=== PATIENT | male | born 1995 | race Caucasian/White ===

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

== ENCOUNTER 2019-01-28 08:17 | Emergency (ER) | payer BC, OTHER ==
[~2019-01-28] VITALS: Ht 185.4 cm; Wt 79.8 kg
[~2019-01-28 08:17] MED LIST: CEFD300C3 PO; PENICILLIN; PRD10T PO
--- OUTSIDE RECORDS SUMMARY | 2019-01-28 08:24 | XMS REPORT | Continuity of Care Document ---
Author Author [facility] Organization [facility] Address Unknown Phone Unavailable Allergies Active Description Code Type Severity Reaction Onset Reported/Identified Relationship to Patient Clinical Status Yes diphenhydramine [id number] Drug Allergy Mild RASH 03/07/2016 Medications There is no data. Problems Date Dx Coded Attending Type Code Diagnosis Diagnosed By 03/07/2016 KELLY PRESCOTT, DEDE Wise Ot F17.210 NICOTINE DEPENDENCE, CIGARETTES, UNCOMPL 03/07/2016 KELLY PRESCOTT, DEDE Wise Ot G51.0 HERNANDES'S PALSY 03/10/2016 KELLY PRESCOTT, DEDE Wise Ot F17.210 NICOTINE DEPENDENCE, CIGARETTES, UNCOMPL 03/10/2016 KELLY PRESCOTT, DEDE Wise Ot G51.0 HERNANDES'S PALSY 03/10/2016 KELLY PRESCOTT, DEDE Wise Ot F17.210 NICOTINE DEPENDENCE, CIGARETTES, UNCOMPL 03/10/2016 KELLY PRESCOTT, DEDE Wise Ot G51.0 HERNANDES'S PALSY 03/12/2016 KELLY PRESCOTT, DEDE Wise Ot F17.210 NICOTINE DEPENDENCE, CIGARETTES, UNCOMPL 03/12/2016 KELLY PRESCOTT, DEDE Wise Ot G51.0 HERNANDES'S PALSY 12/15/2016 MARKUS OLMEDO DO Ot F17.210 NICOTINE DEPENDENCE, CIGARETTES, UNCOMPL 12/15/2016 MARKUS OLMEDO DO Ot J02.9 ACUTE PHARYNGITIS, UNSPECIFIED 12/15/2016 MARKUS OLMEDO DO Ot K12.2 CELLULITIS AND ABSCESS OF MOUTH 12/15/2016 MARKUS OLMEDO DO Ot L30.9 DERMATITIS, UNSPECIFIED 12/17/2016 MARKUS OLMEDO DO Ot F17.210 NICOTINE DEPENDENCE, CIGARETTES, UNCOMPL 12/17/2016 MARKUS OLMEDO DO Ot J02.9 ACUTE PHARYNGITIS, UNSPECIFIED 12/17/2016 MARKUS OLMEDO DO Ot K12.2 CELLULITIS AND ABSCESS OF MOUTH 12/17/2016 MARKUS OLMEDO DO Ot L30.9 DERMATITIS, UNSPECIFIED 12/19/2016 MARKUS OLMEDO DO Ot F17.210 NICOTINE DEPENDENCE, CIGARETTES, UNCOMPL 12/19/2016 MARKUS OLMEDO DO Ot J02.9 ACUTE PHARYNGITIS, UNSPECIFIED 12/19/2016 MARKUS OLMEDO DO Ot K12.2 CELLULITIS AND ABSCESS OF MOUTH 12/19/2016 MARKUS OLMEDO DO Ot L30.9 DERMATITIS, UNSPECIFIED Procedures There is no data. Results Test Result Range Complete blood count (CBC) with automated white blood cell (WBC) differential - 12/15/16 07:23 Blood leukocytes automated count (number/volume) 9.6 10*3/uL 4.3-11.0 Blood erythrocytes automated count (number/volume) 5.35 10*6/uL 4.35-5.85 Venous blood hemoglobin measurement (mass/volume) 14.4 g/dL 13.3-17.7 Blood hematocrit (volume fraction) 43 % 40-54 Automated erythrocyte mean corpuscular volume 81 [foz_us] 80-99 Automated erythrocyte mean corpuscular hemoglobin (mass per erythrocyte) 27 pg 25-34 Automated erythrocyte mean corpuscular hemoglobin concentration measurement ( mass/volume) 33 g/dL 32-36 Automated erythrocyte distribution width ratio 13.7 % 10.0-14.5 Automated blood platelet count (count/volume) 343 10*3/uL 130-400 Automated blood platelet mean volume measurement 9.5 [foz_us] 7.4-10.4 Automated blood neutrophils/100 leukocytes 54 % 42-75 Automated blood lymphocytes/100 leukocytes 33 % 12-44 Blood monocytes/100 leukocytes 10 % 0-12 Automated blood eosinophils/100 leukocytes 3 % 0-10 Automated blood basophils/100 leukocytes 1 % 0-10 Blood neutrophils automated count (number/volume) 5.2 10*3 1.8-7.8 Blood lymphocytes automated count (number/volume) 3.1 10*3 1.0-4.0 Blood monocytes automated count (number/volume) 1.0 10*3 0.0-1.0 Automated eosinophil count 0.3 10*3/uL 0.0-0.3 Automated blood basophil count (count/volume) 0.1 10*3/uL 0.0-0.1 Streptococcus pyogenes antigen detection - 12/15/16 07:23 Streptococcus pyogenes antigen detection NEGATIVE NEGATIVE Serum heterophile antibody titer - 12/15/16 07:23 Serum heterophile antibody titer NEGATIVE NEGATIVE Comprehensive metabolic panel - 12/15/16 07:23 Serum or plasma sodium measurement (moles/volume) 140 mmol/L 135-145 Serum or plasma potassium measurement (moles/volume) 4.1 mmol/L 3.6-5.0 Serum or plasma chloride measurement (moles/volume) 104 mmol/L 98-107 Carbon dioxide 25 mmol/L 21-32 Serum or plasma anion gap determination (moles/volume) 11 mmol/L 5-14 Serum or plasma urea nitrogen measurement (mass/volume) 16 mg/dL 7-18 Serum or plasma creatinine measurement (mass/volume) 0.88 mg/dL 0.60-1.30 Serum or plasma urea nitrogen/creatinine mass ratio 18 NRG Serum or plasma creatinine measurement with calculation of estimated glomerular filtration rate > NRG Serum or plasma glucose measurement (mass/volume) 99 mg/dL 70-105 Serum or plasma calcium measurement (mass/volume) 9.3 mg/dL 8.5-10.1 Serum or plasma total bilirubin measurement (mass/volume) 0.2 mg/dL 0.1-1.0 Serum or plasma alkaline phosphatase measurement (enzymatic activity/volume) 73 U/L 40-136 Serum or plasma aspartate aminotransferase measurement (enzymatic activity/ volume) 35 U/L 5-34 Serum or plasma alanine aminotransferase measurement (enzymatic activity/volume ) 33 U/L 0-55 Serum or plasma protein measurement (mass/volume) 7.6 g/dL 6.4-8.2 Serum or plasma albumin measurement (mass/volume) 4.6 g/dL 3.2-4.5 Bacterial throat culture - 12/15/16 07:23 Bacterial throat culture NBS NRG Encounters ACCT No. Visit Date/Time Discharge Status Pt. Type Provider Facility Loc./Unit Complaint [id number] 12/15/2016 07:02:00 12/15/2016 09:02:00 DIS Emergency MARKUS OLMEDO DO [facility] ER SORE THROAT [id number] 03/07/2016 11:34:00 03/07/2016 13:36:00 DIS Emergency KELLY PRESCOTT, DEDE Wise [facility] ER LEFT SIDE FACIAL WEAKNESS [id number] 01/28/2019 08:20:00 ACT Emergency BLAKE PRESCOTT, VINI [facility] ER LEFT FOOT/ANKLE INJURY
[2019-01-28] MEDS ORDERED: TETANUS,DIPTH,PERTUSS P/F (BOOSTRIX) 0.5 ML VIAL IM ONE (08:45)
--- NOTE | 2019-01-28 09:07 | Diagnostic Imaging Report ---
INDICATION: Left foot injury and abrasion. Time of exam: 8:47 AM 3 views of the left foot were obtained. There appears to be dorsal soft tissue swelling of the foot. Metatarsals and phalanges are intact. The midfoot and hindfoot are unremarkable. No fractures are seen. IMPRESSION: Dorsal soft tissue swelling. No acute bony abnormality is detected. Dictated by: Dictated on workstation # [id number]
--- NOTE | 2019-01-28 09:08 | Diagnostic Imaging Report ---
INDICATION: Injury and pain to the left lower extremity. TIME OF EXAM: 08:45 a.m. Frontal and lateral views of the left tibia and fibula were obtained. Alignment at the knee and ankle is normal. Tibia and fibula appear intact. No fractures are seen. IMPRESSION: No acute bony abnormality is detected. Dictated by: Dictated on workstation # [id number]
[2019-01-28] MEDS ORDERED: ACETAMINOPHEN 500 MG TAB (TYLENOL) PO ONE (10:00)
[2019-01-28] MEDS ORDERED: IBUPROFEN TABLET 200 MG TAB PO ONE (10:00)
[2019-01-28] MEDS ORDERED: CEPH-507 PO (10:04)
--- NOTE | 2019-01-28 10:08 | ED General ---
General Chief Complaint: Lower Extremity Stated Complaint: LEFT FOOT/ANKLE INJURY Nursing Triage Note: PT PRESENTS TO ED WITH COMPLAINTS OF L FOOT PAIN AFTER INJURING THURSDAY WITH A PALET KAYLA. PT REPORTS L LOWER LEG PAIN, ANKLE AND FOOT PAIN. Nursing Sepsis Screen: No Definite Risk Source of Information: Patient Exam Limitations: No Limitations Allergies and Home Medications Allergies Coded Allergies: diphenhydramine (Unverified Allergy, Mild, RASH, 03/07/16) Home Medications Cephalexin 500 Mg Capsule, 500 MG PO QID Prescribed by: VINI DORMAN on 01/28/19 1004 Past Unxitlo-Szoxau-Ecxrpk Hx Patient Social History Alcohol Use: Occasionally Uses Alcohol Beverage of Choice: Beer Recreational Drug Use: Yes (MARIJUANA) Smoking Status: Current Everyday Smoker Type Used: Cigarettes Recent Foreign Travel: No Contact w/Someone Who Travel: No Recent Infectious Disease Expo: No Recent Hopitalizations: No Physical Abuse: No Sexual Abuse: No Mistreated: No Fear: No Immunizations Up To Date Tetanus Booster (TDap): More than 5yrs PED Vaccines UTD: Yes Seasonal Allergies Seasonal Allergies: No Past Medical History Surgeries: Yes ("LOWER ABDOMINAL SX ") Testicular Respiratory: Yes Asthma Currently Using CPAP: No Currently Using BIPAP: No Cardiac: No Neurological: Yes Concussion, Headaches /Migraines Reproductive Disorders: No Genitourinary: No Gastrointestinal: No Musculoskeletal: No Endocrine: No HEENT: No Cancer: No Psychosocial: Yes Anxiety Integumentary: Yes Eczema Blood Disorders: No Physical Exam Vital Signs Vital Signs - First Documented 01/28/19 08:34 Temp 96.8 Pulse 89 Resp 20 B/P (MAP) 140/89 (106) Pulse Ox 100 Capillary Refill : Less Than 3 Seconds Height, Weight, BMI Height: 6'1.00" Weight: 176lbs. oz. 79.735490sd; 22.69 BMI Method:Stated Progress/Results/Core Measures Suspected Sepsis Recent Fever Within 48 Hours: No Infection Criteria Present: None New/Unexplained Altered Menta: No Sepsis Screen: No Definite Risk SIRS Temperature:96.8 Pulse: 89 Respiratory Rate: 20 Blood Pressure 140 /89 Mean: 106 Results/Orders My Orders Orders - VINI LOZANO MD Foot, Left, 3 Views (01/28/19 08:33) Tibia/Fibula, Left, 2 Views (01/28/19 08:36) Dipht,Pertuss(Acell),Tet Adult (Boostrix (01/28/19 08:45) Ibuprofen Tablet (Motrin Tablet) (01/28/19 10:00) Acetaminophen Tablet (Tylenol Tablet) (01/28/19 10:00) Medications Given in ED Current Medications Medications Dose Ordered Sig/Olivier Route Start Time Stop Time Status Last Admin Dose Admin Diphtheria/ Tetanus/Acell Pertussis 0.5 ml ONCE ONCE IM 01/28/19 08:45 01/28/19 08:46 DC 01/28/19 09:43 0.5 ML Vital Signs/I&O 01/28/19 08:34 Temp 96.8 Pulse 89 Resp 20 B/P (MAP) 140/89 (106) Pulse Ox 100 Capillary Refill : Less Than 3 Seconds Blood Pressure Mean: 106 Departure Impression Primary Impression: Crush injury of left foot Qualified Codes: S97.82XA - Crushing injury of left foot, initial encounter Additional Impressions: Abrasion, left ankle, initial encounter Cellulitis of left foot Disposition: 01 HOME, SELF-CARE Condition: Against Medical Advice Departure-Patient Inst. Decision time for Depature: 09:45 Referrals: JOAN BARAHONA MD (PCP/Family) Primary Care Physician Patient Instructions: Cellulitis (Skin Infection), Adult (DC) Add. Discharge Instructions: Elevate your foot to the level of your heart is much as possible. Take ibuprofen up to 600 mg every 6 hours as needed and/or Tylenol ( acetaminophen) up to 1000 mg every 6 hours as needed for pain. You may apply ice in 20 minute intervals to help reduce pain and swelling. You may wrap with Marco bandage with light pressure as needed. Avoid wrapping too tightly. You may apply nonstick dressing and or an nonstick ointment such as Vaseline or antibiotic ointment as needed to prevent dressing from sticking. Follow-up with your primary care provider next week. Return to care if you have worsening symptoms or you are not improving as expected. Use crutches as needed and increase level of activity as pain allows. Complete the entire course of antibiotics as prescribed. All discharge instructions reviewed with patient and/or family. Voiced understanding. Scripts Cephalexin (Keflex) 500 Mg Capsule 500 MG PO QID, #30 CAP Prov: VINI LOZANO MD 01/28/19 Work/School Note: Work Release Form Date Seen in the Emergency Department: Jan 28, 2019 Return to Work: Jan 29, 2019 Other Restrictions Listed Below: No standing/walking until 02/01/19. May do seated work with foot elevated. Restrictions: Use crutches when walking until 02/01/2019. VINI LOZANO MD Jan 28, 2019 10:08
[2019-01-28 10:36] VITALS: BP 132/87
== END 2019-01-28 10:36 | disposition home or self-care (01) ==
LOC: EDUNIT# 08:17 → ER 08:20
DX: S97.82XA Crushing injury of left foot, initial encounter (principal); L03.116 Cellulitis of left lower limb; J45.909 Unspecified asthma, uncomplicated; G43.909 Migraine, unspecified, not intractable, without status migrainosus; F41.9 Anxiety disorder, unspecified; F12.10 Cannabis abuse, uncomplicated; F17.210 Nicotine dependence, cigarettes, uncomplicated; Z23 Encounter for immunization; Z88.8 Allergy status to other drugs, medicaments and biological substances; Z98.890 Other specified postprocedural states; W23.1XXA Caught, crushed, jammed, or pinched between stationary objects, initial encounter
CPT/HCPCS: 73590; 73630; 90715

== ENCOUNTER → 2019-02-01 | Outpatient (CLI) | payer BC ==
[~2019-02-01] MED LIST changes: +CEPH-507 PO
--- NOTE | 2019-02-01 19:28 | Diagnostic Imaging Report ---
EXAMINATION: Left foot. INDICATION: Foot pain. FINDINGS: Three views were obtained. The previous left foot exam of 01/28/2019 noted soft tissue edema along the dorsum of the foot but failed to show any sign of an acute bony abnormality. On this study, there does seem to be less soft tissue edema over the dorsum of the foot. There is still no fracture or acute bony abnormality appreciated, however. The Lisfranc joint is well maintained. IMPRESSION: 1. The soft tissue edema over the dorsum of the foot seen on the prior exam has diminished. There is still no evidence for an acute bony abnormality. 2. If clinical concern regarding an underlying abnormality persists and further imaging is desired, then MRI will be recommended. Dictated by: Dictated on workstation # [id number]
== END ==
LOC: RAD 15:41
PROVIDERS: ATTEND Nurse Practitioner Family
DX: S99.922A Unspecified injury of left foot, initial encounter (principal)
CPT/HCPCS: 73630